=== PATIENT | male | born 1950 | race Caucasian/White ===

== ENCOUNTER 2017-11-27 11:10 | Observation (INO) | payer OTHER, BC ==
[~2017-11-27] VITALS: Ht 177.8 cm; Wt 89.5 kg
[2017-11-27 11:32] LABS: BASO ABS # 0.04 K/uL (0-0.2); EOS % 3.5 %; EOS ABS # 0.14 K/uL (0-0.5); HEMATOCRIT 33.8 % (42-52); HEMOGLOBIN 11.1 g/dL (14.0-18.0); IG# 0.01 K/uL (0.00-0.02); LYMPH % 40.7 %; LYMPH ABS # 1.65 K/uL (1.2-3.4); MEAN CELL VOLUME 99.7 fL (80-100); MEAN CORPUSCULAR HEMOGLOBIN 32.7 pg (25-34); MEAN CORPUSCULAR HGB CONC 32.8 g/dl (32-36); MEAN PLATELET VOLUME 9.6 fL (7.4-10.4); MONO % 9.1 %; MONO ABS # 0.37 K/uL (0.11-0.59); NEUT % 45.5 %; NEUT ABS # 1.84 K/uL (1.4-6.5); PLATELET COUNT 278 K/uL (130-400); RED CELL DISTRIBUTION WIDTH CV 14.2 % (11.5-14.5); RED CELL DISTRIBUTION WIDTH SD 51.6 fL (36.4-46.3); WHITE BLOOD COUNT 4.05 K/uL (4.8-10.8)
[2017-11-27] MEDS ORDERED: ASPI81TA28 PO (11:35)
[2017-11-27] MEDS ORDERED: SOLI10TA2 PO (11:35)
[2017-11-27] MEDS ORDERED: CALC-51 PO (11:35)
[2017-11-27] MEDS ORDERED: OMEG10007 PO (11:35)
--- NOTE | 2017-11-27 11:41 | DIAGNOSTIC IMAGING REPORT ---
SINGLE VIEW CHEST CLINICAL HISTORY: Atypical chest pain. FINDINGS: An AP, portable, upright chest radiograph is obtained. No prior studies are available for comparison at the time of dictation. The examination is degraded by portable technique and apical lordotic positioning. The heart is top normal for projection. The mediastinal contour is within normal limits. Minimal atherosclerotic calcification is noted in the thoracic aorta. The lungs and pleural spaces are clear. No pneumothorax is seen. The bony thorax is grossly intact. IMPRESSION: No active disease in the chest. Electronically signed by: Francis Orellana M.D. 11/27/2017 11:40 AM Dictated Date/Time: 11/27/2017 11:39 AM
[2017-11-27 11:51] LABS: BLOOD UREA NITROGEN 17 mg/dl (7-18); CALCIUM 8.7 mg/dl (8.5-10.1); CARBON DIOXIDE 25 mmol/L (21-32); CKMB < 1.0 ng/ml (0.5-3.6); CREATININE 0.87 mg/dl (0.60-1.40); GLUCOSE 121 mg/dl (70-99); POTASSIUM 3.8 mmol/L (3.5-5.1); SODIUM 140 mmol/L (136-145)
[2017-11-27] MEDS ORDERED: ONDANSETRON INJ 2 MG/ML 2 ML VIAL IV PRN (13:45)
[2017-11-27] MEDS ORDERED: POLYETHYLENE (MIRALAX) 17 GM PACK PO PRN (13:45)
[2017-11-27] MEDS ORDERED: NITROGLYCERIN 0.4 MG SL PER TAB CHARGE SL PRN (13:45)
[2017-11-27] MEDS ORDERED: ALUMINUM/MAGNESIUM/SIMETH (MAALOX MAX) 30 ML UDC PO PRN (13:45)
[2017-11-27] MEDS ORDERED: ACETAMINOPHEN 325 MG TAB PO PRN (13:45)
[2017-11-27] MEDS ORDERED: CHOL100010 PO (13:52)
[2017-11-27] MEDS ORDERED: OYST500T47 PO (13:52)
[2017-11-27 14:30] VITALS: O2SAT 98
[2017-11-27] MEDS ORDERED: GLUCAGON FOR INJ 1 MG VIAL SQ PRN (14:30)
[2017-11-27] MEDS ORDERED: GLUCOSE 10 TABS/TUBE PO PRN (14:30)
[2017-11-27] MEDS ORDERED: CARBOHYDRATES FOR HYPOGLYCEMIA PO PRN (14:30)
[2017-11-27] MEDS ORDERED: GLUCOSE 40% GEL 15 GM TUBE PO PRN (14:30)
[2017-11-27] MEDS ORDERED: DEXTROSE 50% 50 ML SYR IV PRN (14:30)
--- NOTE | 2017-11-27 14:36 | History and Physical ---
History & Physical Date & Time of Service: Nov 27, 2017 at 13:42 Chief Complaint: Ref By - Cardiac/Abnormal Ekg Primary Care Physician: Nahid Meyers DO History of Present Illness Source: patient, clinic records, hospital records Pt is a 67 y/o M with PMH dyslipidemia, prediabetes, prostate CA S/P surgery, presented to ER from PCP office with c/o intermittent CP and found to be bradycardic with 1st degree and 2nd degree AV block on 2 EKGs in office. Pt denies any CP today or currently. Patient reports past month has noticed intermittent left-sided mild chest discomfort that lasts for a few minutes. Reports has noticed it occurs mostly after eating and resolves with drinking water. Sometimes occurs not associated with eating. Denies any chest discomfort with activity or exercise. Denies any SOB, diaphoresis, dizziness, palpitations , syncope. Patient states exercises approx 5 days a week: 30 minutes on treadmill and elliptical. Denies any CP/SOB/dizziness with exercise. Pt reports was on simvastatin 10mg in past, however has been off for past 2 years, as been controlled with diet. Denies fever/chills, diaphoresis, N/V/D/C, LAURA, vision changes, neck pain, orthopnea, cough, sore throat, choking, indigestion, abdominal pain, paresthesias, weakness, extremity edema, rashes, weight changes. Denies any known personal cardiac history. FH: father CABG age ~70, brother CAD with stent at 76 y/o. Past Medical/Surgical History Medical Problems: (1) Dyslipidemia Status: Chronic (2) Prediabetes Status: Chronic (3) Prostate CA Permanent Comment: s/p surgery 2010, Lup Status: Chronic Surgical Problems: (1) Hx of prostatectomy Permanent Comment: 2010 Status: Resolved Family History FH: breast cancer FH: colon cancer FH: melanoma Heart disease (Father CABG age 70 Brother Stent age 76) Social History Smoking Status: Never Smoker Smokeless Tobacco Use: No Alcohol Use: socially (6 beers on weekends) Drug Use: none Marital Status: Housing status: lives with significant other Allergies Coded Allergies: No Known Allergies (Unverified , 11/27/17) Home Medications Scheduled Aspirin (Aspirin Ec), 81 MG PO DAILY Cholecalciferol (Vitamin D), 1 TAB PO DAILY Fish Oil ([place]-3), 1 CAP PO DAILY Oyster Shell (Calcium), 1 TAB PO DAILY Solifenacin (Vesicare), 10 MG PO DAILY Review of Systems See HPI for pertinent positives & negatives. All other systems reviewed and were otherwise negative Physical Exam Vital Signs Date Time Temp Pulse Resp B/P (MAP) Pulse Ox O2 Delivery O2 Flow Rate FiO2 11/27/17 13:11 50 11/27/17 11:30 59 11/27/17 11:13 36.8 60 20 166/92 99 Room Air General Appearance: WD/WN, no apparent distress Head: normocephalic, atraumatic Eyes: normal inspection, sclerae normal ENT: hearing grossly normal, pharynx normal, + pertinent finding (mucous membranes moist) Neck: supple, trachea midline Respiratory/Chest: chest non-tender, lungs clear, normal breath sounds, no respiratory distress Cardiovascular: no murmur, normal peripheral pulses, + bradycardia Abdomen/GI: normal bowel sounds, non tender, soft Extremities/Musculoskelatal: normal inspection, no pedal edema, normal range of motion Neurologic/Psych: alert, normal mood/affect, oriented x 3 Skin: warm/dry Diagnostics Laboratory Results Results Past 24 Hours Test 11/27/17 11:20 Range/Units White Blood Count 4.05 4.8-10.8 K/uL Red Blood Count 3.39 4.7-6.1 M/uL Hemoglobin 11.1 14.0-18.0 g/dL Hematocrit 33.8 42-52 % Mean Corpuscular Volume 99.7 80-100 fL Mean Corpuscular Hemoglobin 32.7 25-34 pg Mean Corpuscular Hemoglobin Concent 32.8 32-36 g/dl Platelet Count 278 130-400 K/uL Mean Platelet Volume 9.6 7.4-10.4 fL Neutrophils (%) (Auto) 45.5 % Lymphocytes (%) (Auto) 40.7 % Monocytes (%) (Auto) 9.1 % Eosinophils (%) (Auto) 3.5 % Basophils (%) (Auto) 1.0 % Neutrophils # (Auto) 1.84 1.4-6.5 K/uL Lymphocytes # (Auto) 1.65 1.2-3.4 K/uL Monocytes # (Auto) 0.37 0.11-0.59 K/uL Eosinophils # (Auto) 0.14 0-0.5 K/uL Basophils # (Auto) 0.04 0-0.2 K/uL RDW Standard Deviation 51.6 36.4-46.3 fL RDW Coefficient of Variation 14.2 11.5-14.5 % Immature Granulocyte % (Auto) 0.2 % Immature Granulocyte # (Auto) 0.01 0.00-0.02 K/uL Sodium Level 140 136-145 mmol/L Potassium Level 3.8 3.5-5.1 mmol/L Chloride Level 107 98-107 mmol/L Carbon Dioxide Level 25 21-32 mmol/L Anion Gap 8.0 3-11 mmol/L Blood Urea Nitrogen 17 7-18 mg/dl Creatinine 0.87 0.60-1.40 mg/dl Est Creatinine Clear Calc Drug Dose 91.6 ml/min Estimated GFR () 103.5 Estimated GFR (Non- 89.3 BUN/Creatinine Ratio 19.1 10-20 Random Glucose 121 70-99 mg/dl Calcium Level 8.7 8.5-10.1 mg/dl Total Creatine Kinase 91 39-308 U/L Creatine Kinase MB < 1.0 0.5-3.6 ng/ml Creatine Kinase MB Ratio 0-3.0 Troponin I < 0.015 0-0.045 ng/ml Diagnostic Radiology CXR: IMPRESSION: No active disease in the chest. Impression Assessment and Plan Pt is a 67 y/o M with PMH dyslipidemia, prediabetes, prostate CA S/P surgery, presented to ER from PCP office with c/o intermittent CP and found to be bradycardic with 1st degree and 2nd degree AV block on 2 EKGs in office. INTERMITTENT CHEST PAIN R/O ACS Pt denies any current CP or any CP today. Reported 1 month hx of intermittent left-sided mild chest discomfort that lasts for a few minutes. Reports has noticed it occurs mostly after eating and resolves with drinking water. No chest discomfort with activity/exercise. No SOB, diaphoresis, palpitations, dizziness, syncope. In ER EKG: sinus bradycardia, rate 59, 1st degree AV block. Initial troponin negative. TSH: 1.3. negative Lyme. -Repeat EKG in am -Will trend troponin -Echo -lipid panel -ASA -Nitro prn CP and repeat EKG for CP -Cardiology consult-Dr Valladares aware & seeing pt in ER -npo after midnight for possible cardiac stress test tomorrow BRADYCARDIA In ER pulse 48-60; BP: 166/92 & 142/82. No dizziness, syncope, CP, SOB. -Pt exercises 30 minutes on treadmill/elliptical 5 days a week -monitor on tele -cardiology consult DYSLIPIDEMIA Hx simvastatin use in past, not for past 2 years, has been controlled with diet -lipid panel in am PREDIABETES glucose: 121 in ER -HA1c in am -diabetic diet -BSG ACHS -novolog sliding scale per protocol PROSTATE CA S/P SURGERY STRESS INCONTINENCE -continue vesicare DVT Prophylaxis -lovenox Admit tele Full Code as per discussion with pt Follows with Dr Luigi Khalil for routine care Pt was seen with Dr Lyle. See addendum Resuscitation Status VTE Prophylaxis Will order VTE Prophylaxis: Yes Note ATTENDING ADDENDUM Record reviewed. Patient interviewed and examined. Care coordinated with Nataly Clay PA-C. Please refer to her documentation for patient's history. Briefly, 67-year-old male with no history of cardiovascular disease. Seen in clinic today for routine follow-up. Experiencing intermittent nonexertional chest discomfort. Noted to be bradycardic. EKG showed intermittent second-degree heart block. Referred to the hospital for further evaluation. Pain-free at time of my assessment. EXAM: General- no distress Lungs- clear to auscultation; no respiratory distress Cardiovascular- RRR; no murmur; no gallop; no JVD; no pretibial edema Abdomen- + bowel sounds, soft, nontender Extremities- no cyanosis; no calf tenderness Neuro- alert, oriented Skin- warm & dry DATA: Serum troponin less than 0.015. Lyme screen negative. TSH 1.390. Other lab studies as noted. Chest x-ray showed normal cardiac silhouette, no infiltrates, effusions, CHF. EKG performed at 11:19 reviewed and demonstrated sinus bradycardia at 59 / minute, first-degree AV block, no acute ST or T-wave abnormalities. ASSESSMENT AND PLAN: Intermittent chest pain, nonexertional. Check serial cardiac markers. Cardiology consulted. First-degree AV block and intermittent second-degree AV block. Lyme screen and TSH normal. Further management per Cardiology. Please refer to ANDRE Reynolds's documentation for discussion of other issues. Gentry Lyle MD . Additional Copies To Nahid Meyers DO
[2017-11-27 14:38] VITALS: BP 153/87; PULSE 60; TEMP 37; O2SAT 100; Ht 177.8 cm; Wt 89.5 kg
[2017-11-27] MEDS ORDERED: IV FLUIDS COMPLETED PRN (14:45)
[2017-11-27 15:22] LABS: INR 0.9 (0.9-1.1)
[2017-11-27] MEDS ORDERED: ENOXAPARIN 40 MG/0.4 ML SYR SC SCH (16:00)
[2017-11-27] MEDS: INSULIN ASPART 100 UNITS/ML 3 ML PEN SC SCH ×2 (16:15→21:00)
--- NOTE | 2017-11-27 16:26 | ECHOCARDIOGRAM REPORT ---
*NOTICE TO RECEIVING [employer] [facility] This information is strictly Confidential and protected under [place] law. [place] law prohibits you from making any further disclosure of this information unless further disclosure is expressly permitted by the written consent of the person to whom it pertains or is authorized by law. A general authorization for the release of medical or other information is not sufficient for this purpose. Hospital accepts no responsibility if the information is made available to any other person, INCLUDING THE PATIENT. Interpretation Summary * Name: KYLIE MARQUEZ Study Date: 11/27/2017 02:46 PM BP: 153/87 mmHg * Patient Location: C.2E\S\E211\S\1 HR: 49 * : 1950 (M/d/yyyy) Gender: Male Height: 69 in * Age: 67 yrs Ethnicity: CA Weight: 199 lb * Ordering Physician: Nataly Reynolds * Referring Physician: Fer Oneal D.O. * Performed By: Clarita Meyers RCS * * Reason For Study: CHEST PAIN * BSA: 2.1 m2 * -- Conclusions -- * The left ventricle is normal in size. * There is moderate concentric left ventricular hypertrophy. * Left ventricular systolic function is normal. * The left ventricular wall motion is normal. * Ejection Fraction = 55-60%. * Grade I diastolic dysfunction, (abnormal relaxation pattern). * There is no significant valvular disease * Aortic valve sclerosis mild, without significant aortic valvular stenosis. Procedure Details * A complete two-dimensional transthoracic echocardiogram was performed (2D, M-mode, Doppler and color flow Doppler). Left Ventricle * The left ventricle is normal in size. * There is moderate concentric left ventricular hypertrophy. * Left ventricular systolic function is normal. * Ejection Fraction = 55-60%. * The left ventricular wall motion is normal. Right Ventricle * The right ventricle is normal in size and function. Atria * The left atrial size is normal. * Right atrial size is normal. * No ASD detected; PFO is not assessed. Mitral Valve * The mitral valve anatomy is normal. * There is no mitral valve stenosis. * There is trace mitral regurgitation. Tricuspid Valve * The tricuspid valve anatomy is normal. * There is no tricuspid stenosis. * There is trace tricuspid regurgitation. * Doppler findings do not suggest pulmonary hypertension. Aortic Valve * The aortic valve is trileaflet. * Aortic valve sclerosis mild, without significant aortic valvular stenosis. * No hemodynamically significant valvular aortic stenosis. * No aortic regurgitation is present. Pulmonic Valve * The pulmonic valve is not well visualized. Great Vessels * The aortic root is normal size. Pericardium/Pleural * There is no pericardial effusion. Great Vessels * Normal inferior vena cava diameter and respiratory variation suggests normal central venous pressure. Left Ventricular Diastolic Function * Grade I diastolic dysfunction, (abnormal relaxation pattern). MMode 2D Measurements and Calculations IVSd 1.5 cm IVSs 1.7 cm LVIDd 5.0 cm LVIDs 4.2 cm LVPWd 1.2 cm LVPWs 1.4 cm IVS/LVPW 1.2 FS 16.9 % EDV(Teich) 120.4 ml ESV(Teich) 78.1 ml EF(Teich) 35.2 % EDV(cubed) 128.0 ml ESV(cubed) 73.5 ml EF(cubed) 42.6 % % IVS thick 16.6 % % LVPW thick 11.8 % LV mass(C)d 284.0 grams LV mass(C)dI 137.8 grams/m\S\2 LV mass(C)s 264.4 grams LV mass(C)sI 128.3 grams/m\S\2 SV(Teich) 42.4 ml SI(Teich) 20.5 ml/m\S\2 SV(cubed) 54.5 ml SI(cubed) 26.4 ml/m\S\2 Ao root diam 3.7 cm Ao root area 10.6 cm\S\2 ACS 2.7 cm LA dimension 3.5 cm LA/Ao 0.96 LVOT diam 2.0 cm LVOT area 3.3 cm\S\2 LVAd ap4 34.2 cm\S\2 LVLd ap4 8.4 cm EDV(MOD-sp4) 113.2 ml EDV(sp4-el) 117.6 ml LVAs ap4 20.6 cm\S\2 LVLs ap4 6.8 cm ESV(MOD-sp4) 53.5 ml ESV(sp4-el) 53.4 ml EF(MOD-sp4) 52.7 % EF(sp4-el) 54.6 % LVAd ap2 39.7 cm\S\2 LVLd ap2 9.4 cm EDV(MOD-sp2) 137.9 ml EDV(sp2-el) 143.0 ml LVAs ap2 23.9 cm\S\2 LVLs ap2 7.0 cm ESV(MOD-sp2) 66.6 ml ESV(sp2-el) 68.9 ml EF(MOD-sp2) 51.7 % EF(sp2-el) 51.8 % LVLd %diff 10.0 % EDV(MOD-bp) 130.8 ml LVLs %diff 3.8 % ESV(MOD-bp) 60.1 ml EF(MOD-bp) 54.0 % SV(MOD-sp4) 59.7 ml SI(MOD-sp4) 28.9 ml/m\S\2 SV(MOD-sp2) 71.3 ml SI(MOD-sp2) 34.6 ml/m\S\2 SV(MOD-bp) 70.6 ml SI(MOD-bp) 34.3 ml/m\S\2 SV(sp4-el) 64.2 ml SI(sp4-el) 31.1 ml/m\S\2 SV(sp2-el) 74.1 ml SI(sp2-el) 36.0 ml/m\S\2 Doppler Measurements and Calculations MV E max adelaide 62.6 cm/sec MV A max ad[place] 83.0 cm/sec MV E/A 0.75 MV P1/2t max [place] 68.2 cm/sec MV P1/2t 76.9 msec MVA(P1/2t) 2.9 cm\S\2 MV dec slope 259.6 cm/sec\S\2 MV dec time 0.18 sec Ao V2 max 111.7 cm/sec Ao max PG 5.0 mmHg Ao max PG (full) 2.4 mmHg HALLE(V,A) 2.4 cm\S\2 HALLE(V,D) 2.4 cm\S\2 LV V1 max PG 2.6 mmHg LV V1 max 80.0 cm/sec PA V2 max 107.0 cm/sec PA max PG 4.6 mmHg PI max [place] 155.3 cm/sec PI max PG 9.6 mmHg PI dec slope 145.4 cm/sec\S\2 PI P1/2t 312.9 msec TR max ad[place] 186.4 cm/sec
[2017-11-27] MEDS: VESICARE~ORDER AWAITING ACTION SCH ×2 (16:37→21:01)
--- NOTE | 2017-11-27 16:53 | EMERGENCY ROOM VISIT NOTE ---
History Report prepared by Calvin: Erick Carroll Under the Supervision of: Dr. Werner Hernandez D.O. First contact with patient: 11:14 Chief Complaint: CARDIAC ASSESSMENT Stated Complaint: REF BY DR - CARDIAC/ABNORMAL EKG History of Present Illness The patient is a 67 year old male who presents to the Emergency Room after referral from his primary care office and Dr. Oneal after having an outpatient EKG during a routine physical this morning. The patient states that over the past couple of weeks to months he has been having a very intermittent acute "discomfort" in the left chest. He does not qualify the pain in anyway and describes it as only a discomfort. He denies any other arm pain, jaw pain, diaphoresis, shortness of breath, or dizziness. He continues to deny any nausea , vomiting, diarrhea or cough. The patient notes that the last episode of chest discomfort was 3-4 days ago. He notes that he does exercise 30-45 minutes every day and does not notice that exercise precipitates the pain. Source of History: patient Onset: weeks to months Position: chest (left) Quality: other ("discomfort" ) Timing: intermittent Associated Symptoms: No cough, No neck pain, No SOB, No nausea, No vomiting , No abdominal pain, No diarrhea, No weakness, No numbness Review of Systems See HPI for pertinent positives & negatives. A total of 10 systems reviewed and were otherwise negative. Past Medical & Surgical Medical Problems: (1) Bradycardia (2) Dyslipidemia (3) Intermittent chest pain (4) Prediabetes (5) Prostate CA Surgical Problems: (1) Hx of prostatectomy Family History Heart disease Social History Smoking Status: Never Smoker Drug Use: none Marital Status: Housing Status: lives with significant other Occupation Status: retired Current/Historical Medications Scheduled Aspirin (Aspirin Ec), 81 MG PO DAILY Cholecalciferol (Vitamin D), 1 TAB PO DAILY Fish Oil ([place]-3), 1 CAP PO DAILY Oyster Shell (Calcium), 1 TAB PO DAILY Solifenacin (Vesicare), 10 MG PO DAILY Allergies Coded Allergies: No Known Allergies (Unverified , 11/27/17) Physical Exam Vital Signs Date Time Temp Pulse Resp B/P (MAP) Pulse Ox O2 Delivery O2 Flow Rate FiO2 11/27/17 13:11 50 11/27/17 13:10 55 12 11/27/17 12:40 54 11 11/27/17 12:10 56 12 11/27/17 11:40 48 14 11/27/17 11:30 59 11/27/17 11:13 36.8 60 20 166/92 99 Room Air Physical Exam GENERAL: Sitting up in bed, alert, well appearing, well nourished, no distress, non-toxic EYE EXAM: normal conjunctiva. OROPHARYNX: no exudate, no erythema, lips, buccal mucosa, and tongue normal and mucous membranes are moist NECK: supple, no nuchal rigidity, no adenopathy, non-tender LUNGS: Clear to auscultation. Normal chest wall mechanics HEART: no murmurs, S1 normal and S2 normal ABDOMEN: abdomen soft, non-tender, normo-active bowel sounds, no masses, no rebound or guarding. BACK: Back is symmetrical on inspection and there is no deformity, no midline tenderness, no CVA tenderness. SKIN: no rashes and no bruising UPPER EXTREMITIES: upper extremities are grossly normal. LOWER EXTREMITIES: No pitting edema. Calves equal bilaterally. NEURO EXAM: Normal sensorium, cranial nerves II-XII grossly intact, normal speech, no gross weakness of arms, no gross weakness of legs. Medical Decision & Procedures ER Provider Diagnostic Interpretation: Radiology results as stated below per my review and the radiologist's interpretation: SINGLE VIEW CHEST CLINICAL HISTORY: Atypical chest pain. FINDINGS: An AP, portable, upright chest radiograph is obtained. No prior studies are available for comparison at the time of dictation. The examination is degraded by portable technique and apical lordotic positioning. The heart is top normal for projection. The mediastinal contour is within normal limits. Minimal atherosclerotic calcification is noted in the thoracic aorta. The lungs and pleural spaces are clear. No pneumothorax is seen. The bony thorax is grossly intact. IMPRESSION: No active disease in the chest. Electronically signed by: Francis Orellana M.D. 11/27/2017 11:40 AM Dictated Date/Time: 11/27/2017 11:39 AM Laboratory Results 11/27/17 11:20 Red Blood Count 3.39, Mean Corpuscular Volume 99.7, Mean Corpuscular Hemoglobin 32.7, Mean Corpuscular Hemoglobin Concent 32.8, Mean Platelet Volume 9.6, Neutrophils (%) (Auto) 45.5, Lymphocytes (%) (Auto) 40.7, Monocytes (%) (Auto) 9.1, Eosinophils (%) (Auto) 3.5, Basophils (%) (Auto) 1.0, Neutrophils # (Auto) 1.84, Lymphocytes # (Auto) 1.65, Monocytes # (Auto) 0.37, Eosinophils # (Auto) 0.14, Basophils # (Auto) 0.04 11/27/17 11:20 Test 11/27/17 11:20 White Blood Count 4.05 K/uL (4.8-10.8) Red Blood Count 3.39 M/uL (4.7-6.1) Hemoglobin 11.1 g/dL (14.0-18.0) Hematocrit 33.8 % (42-52) Mean Corpuscular Volume 99.7 fL (80-100) Mean Corpuscular Hemoglobin 32.7 pg (25-34) Mean Corpuscular Hemoglobin Concent 32.8 g/dl (32-36) Platelet Count 278 K/uL (130-400) Mean Platelet Volume 9.6 fL (7.4-10.4) Neutrophils (%) (Auto) 45.5 % Lymphocytes (%) (Auto) 40.7 % Monocytes (%) (Auto) 9.1 % Eosinophils (%) (Auto) 3.5 % Basophils (%) (Auto) 1.0 % Neutrophils # (Auto) 1.84 K/uL (1.4-6.5) Lymphocytes # (Auto) 1.65 K/uL (1.2-3.4) Monocytes # (Auto) 0.37 K/uL (0.11-0.59) Eosinophils # (Auto) 0.14 K/uL (0-0.5) Basophils # (Auto) 0.04 K/uL (0-0.2) RDW Standard Deviation 51.6 fL (36.4-46.3) RDW Coefficient of Variation 14.2 % (11.5-14.5) Immature Granulocyte % (Auto) 0.2 % Immature Granulocyte # (Auto) 0.01 K/uL (0.00-0.02) Prothrombin Time 9.9 SECONDS (9.0-12.0) Prothromb Time International Ratio 0.9 (0.9-1.1) Anion Gap 8.0 mmol/L (3-11) Est Creatinine Clear Calc Drug Dose 91.6 ml/min Estimated GFR () 103.5 Estimated GFR (Non- 89.3 BUN/Creatinine Ratio 19.1 (10-20) Calcium Level 8.7 mg/dl (8.5-10.1) Magnesium Level 2.1 mg/dl (1.8-2.4) Total Creatine Kinase 91 U/L (39-308) Creatine Kinase MB < 1.0 ng/ml (0.5-3.6) Creatine Kinase MB Ratio (0-3.0) Troponin I < 0.015 ng/ml (0-0.045) Thyroid Stimulating Hormone (TSH) 1.390 uIu/ml (0.300-4.500) Lyme Disease IgG Antibody NEG (NEG) Lyme Disease IgM Antibody NEG (NEG) Laboratory results per my review. ECG Per My Interpretation Indication: chest pain, other (EKG Findings outpatient) Rate (beats per minute): 59 Rhythm: sinus bradycardia Findings: 1st degree AV block, no acute ischemic change, other (Normal [place], no PVCs) ED Course ED COURSE: Vital signs were reviewed and showed hypertensive vitals. The patients medical record was reviewed The above diagnostic studies were performed and reviewed. ED treatments and interventions as stated above. 1120: The patient was evaluated in room C7. A complete history and physical examination was performed. 1223: I discussed the case with Dr. Valladares - Cardiology. He suggests admitting the patient to medicine. 1229: I discussed the case with Cheryl Dickey [facility] Hospitalist PARTHA. She will evaluate the patient for further treatment. 1243: Upon reevaluation, the patient is resting in bed. I discussed my findings with the patient and he understands and agrees with the treatment plan. Based on the patients age, coexisting illnesses, exam and lab findings the decision to treat as an inpatient was made. The patient remained stable while under my care. The patient will be evaluated for further management. Medical Decision Differential diagnoses includes but is not limited to acute coronary syndrome, myocardial infarction, pericarditis, pulmonary embolus, aortic dissection, pneumonia, pneumothorax, musculoskeletal, shingles, esophageal. Patient is a 67-year-old male that is referred in by cardiology for Mobitz type II heart block. CBC along with BMP and troponin was unremarkable. TSH is normal. INR is unremarkable. Chest x-ray is unremarkable. EKG shows a sinus rhythm with a first-degree AV block. Discussed with cardiology. Patient was updated bedside admitted to internal medicine. Medication Reconcilliation Current Medication List: was personally reviewed by me Blood Pressure Screening Patient's blood pressure: Elevated blood pressure Referred to hospitalist. Consults Time Called: 1220 Consulting Physician: Dr. Valladares - Cardiology Returned Call: 1223 I discussed the case with Dr. Blaine Washington Cardiology. He suggests admitting the patient to medicine. Additional Consults: Time Called: 1224 Consulted Physician: Cheryl CHAVIS Returned Call: [phone] Additional Comments: [facility] She will evaluate the patient for further treatment. Impression Primary Impression: Mobitz type 2 second degree heart block Scribe Attestation The scribe's documentation has been prepared under my direction and personally reviewed by me in its entirety. I confirm that the note above accurately reflects all work, treatment, procedures, and medical decision making performed by me. Departure Information Dispostion Being Evaluated By Hospitalist Referrals Nahid Meyers DO (PCP) Patient Instructions My [facility]
--- NOTE | 2017-11-27 17:17 | CARDIOLOGY CONSULTATION ---
DATE OF CONSULTATION: 11/27/2017 REFERRING: Dr. Reynolds. PRIMARY CARE PHYSICIAN: Dr. Nahid Meyers. INDICATIONS: Chest discomfort, second-degree AV block. HISTORY OF PRESENT ILLNESS: The patient is a 67-year-old male without prior documented coronary artery disease or heart disease. His underlying medical problems include dyslipidemia and familial history of heart disease, underlying history of past prostate carcinoma, status post radiation therapy. He presents now noting having been seen by a new primary care physician this morning and during full review of system did note intermittent episodes of chest discomfort with atypical features of heaviness that occurs both with rest and stress with good exercise tolerance generally. He continues to exercise vigorously. His history is notable for 25 pound weight loss over the past two years through diet and exercise efforts. EKG done to evaluate symptoms above demonstrated sinus rhythm with second-degree AV block. In light of concerns, he was referred to ER evaluation. Today, the patient denies any current complaints. Notes no dizziness or lightheadedness. Notes no history of syncope. Notes no history of rheumatic fever, scarlet fever, TIA or stroke. Notes no melena, hematochezia, dysuria or hematuria. Appetite has been good. He notes a weight loss as described above. Notes no sleep disturbances. Exercise activities include treadmill and elliptical workout, a relatively high level workload with good tolerance. Notes previously having been on simvastatin for lipid reduction, but discontinued it with weight loss efforts and dietary intervention. Last LDL 05/2017 was 120. He denies fevers, chills or sweats. Notes no tick exposure. Does have a history of past rash. Does work in his yard. Denies headache or visual changes. Notes no neck stiffness. REVIEW OF SYSTEMS: Otherwise negative. ALLERGIES: None. MEDICATIONS: Prior to hospitalization were VESIcare 10 mg per day, calcium supplement 2000 mg per day, fish oil one tablet per day, vitamin D and aspirin 81 mg per day. PAST SURGICAL HISTORY: Notable for retropubic radical prostatectomy, laparoscopic in 01/2011. FAMILY HISTORY: Notable for coronary disease in multiple family members including father, brother and on maternal side. 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 He is a nonsmoker. Occasional alcoholic beverage drinker. PHYSICAL EXAMINATION: VITAL SIGNS: Heart rate is 54, blood pressure is 142/80. HEENT: Normocephalic, atraumatic. Nares without discharge. Throat was clear. NECK: Supple without thyromegaly, lymphadenopathy, JVD or bruit. LUNGS: Clear to auscultation. CARDIOVASCULAR: Regular with normal S1, S2. There is no audible murmur, gallop or rub. PMI is nondisplaced. ABDOMEN: Soft, nontender. There is no palpable hepatosplenomegaly. There is no hepatojugular reflux. EXTREMITIES: Without cyanosis or clubbing. There is no peripheral edema. There are intact distal pulses. NEUROLOGIC: The patient is alert and oriented, answering questions appropriately. DIAGNOSTIC DATA: EKG performed in the Emergency Room reveals sinus rhythm, first-degree AV block, rate 59. Telemetry reveals intermittent second-degree AV block Mobitz I. LABORATORY STUDIES: Lyme disease screening titer is negative. TSH is 1.3. Troponin less than 0.015. Sodium is 140, potassium 3.8, chloride is 107, bicarbonate 25, BUN 17, creatinine 0.87, hemoglobin 11.1, hematocrit 33.8. IMPRESSION: The patient is a 67-year-old male without prior documented cardiac history. Underlying medical cardiac risk factors of mild hyperlipidemia and familial history of heart disease, presented for routine evaluation. On complete review of system, did mention occasional episodes of chest heaviness without specific exertional relationship atypical in nature. EKG done demonstrates second-degree AV block, Mobitz 1 versus Mobitz II. PLAN: The patient will be admitted to telemetry to follow heart rates and rhythm overnight. Laboratory studies have already been ordered. Has baseline screening studies with normal TSH and Lyme titer. The patient will be kept n.p.o. after midnight with anticipated stress echocardiography in the morning, unless findings discern on telemetry or resting echocardiogram ordered. Discussed mechanisms of cardiac conduction in detail. MARVIN
[2017-11-27 19:17] VITALS: BP 121/74; PULSE 56; TEMP 36.8; O2SAT 97
[2017-11-27 20:00] VITALS: O2SAT 98
[2017-11-28 00:10] VITALS: BP 111/72; PULSE 56; TEMP 36.9; O2SAT 97
[2017-11-28 03:07] VITALS: BP 120/74; PULSE 55; TEMP 36.7; O2SAT 96
[2017-11-28 06:11] LABS: HEMATOCRIT 33.1 % (42-52); HEMOGLOBIN 10.9 g/dL (14.0-18.0); MEAN CELL VOLUME 99.4 fL (80-100); MEAN CORPUSCULAR HEMOGLOBIN 32.7 pg (25-34); MEAN CORPUSCULAR HGB CONC 32.9 g/dl (32-36); PLATELET COUNT 256 K/uL (130-400); RED CELL DISTRIBUTION WIDTH CV 14.1 % (11.5-14.5); RED CELL DISTRIBUTION WIDTH SD 50.7 fL (36.4-46.3); WHITE BLOOD COUNT 3.63 K/uL (4.8-10.8)
[2017-11-28] MEDS: INSULIN ASPART 100 UNITS/ML 3 ML PEN SC SCH (07:00)
[2017-11-28 07:01] LABS: CALCIUM 8.3 mg/dl (8.5-10.1); CREATININE 0.91 mg/dl (0.60-1.40); POTASSIUM 4.4 mmol/L (3.5-5.1)
[2017-11-28] MEDS: VESICARE~ORDER AWAITING ACTION SCH (08:00)
[2017-11-28 08:22] VITALS: BP 111/71; PULSE 52; TEMP 36.9; O2SAT 97
[2017-11-28] MEDS ORDERED: ASPIRIN 81 MG ECTAB PO SCH (09:00)
--- NOTE | 2017-11-28 10:16 | PROGRESS NOTE ---
DATE: 11/28/2017 The patient seen and examined. Chart, medications, telemetry reviewed. SUBJECTIVE: The patient had no problems overnight. Telemetry demonstrated sinus bradycardia with first-degree AV block and Mobitz type 1 second-degree AV block, no pauses or high-degree conduction abnormalities. He had no chest pains or shortness of breath. He was referred and underwent stress testing as below with negative study for ischemia. Echocardiogram demonstrated moderate left ventricular hypertrophy. Currently, he feels well. OBJECTIVE: VITAL SIGNS: Heart rate is 52, blood pressure is 111/71. HEENT: Normocephalic, atraumatic. NECK: There is no jugular venous distention. No carotid bruits. LUNGS: Clear. CARDIOVASCULAR: Regular with normal S1, S2. No murmur, gallop or rub. ABDOMEN: Soft, nontender. EXTREMITIES: Without cyanosis or clubbing. There is no peripheral edema. LABORATORY STUDIES: White cell count 3.6, hemoglobin is 10.9. Cholesterol is 201 with an LDL of 119 and HDL of 51. Hemoglobin A1c was 6.0. Glucose is 117. Stress echocardiography, the patient exercised for a total of 10 minutes on a standard Leo protocol achieving 88% age-predicted maximum heart rate without ischemia or symptoms. EKG response was normal. First-degree AV block and second-degree AV block were not present during stress. LV systolic function improved appropriately without evidence of ischemia. IMPRESSION AND PLAN: 1. Second-degree AV block, Mobitz type 1, asymptomatic. Plan: Avoid all AV node blocking drugs. Zio patch event monitor be placed post-hospital discharge to exclude significant arrhythmias. 2. Multiple cardiac risk factors with atypical chest discomfort. Stress testing negative for ischemia. 3. Mildly hypertensive blood pressure response without LVH on echocardiogram. Would recommend initiating losartan 25 mg per day, treatment of underlying hyperglycemia. Follow up with cardiology in 4-6 weeks' time.
--- NOTE | 2017-11-28 11:31 | Progress Note ---
Medicine Progress Note Date & Time of Visit: Nov 28, 2017 at 11:31 . Subjective Doing well. No CP, SOB, lightheadedness. Did well on treadmill stress test. . Objective Last 8 Hrs Date Time Temp Pulse Resp B/P (MAP) Pulse Ox O2 Delivery O2 Flow Rate FiO2 11/28/17 08:22 36.9 52 16 111/71 (84) 97 Room Air 11/28/17 08:00 Room Air Physical Exam: General- no distress Lungs- clear to auscultation; no respiratory distress Cardiovascular- RRR; no murmur or gallop; no JVD; no pretibial edema Abdomen- + bowel sounds, soft, nontender Extremities- no cyanosis; no calf tenderness Neuro- alert, oriented Skin- warm & dry . Laboratory Results: Last 24 Hours Test 11/27/17 16:14 11/27/17 17:12 11/27/17 20:17 11/27/17 22:50 Bedside Glucose 94 mg/dl 94 mg/dl Troponin I < 0.015 ng/ml < 0.015 ng/ml Test 11/28/17 05:50 11/28/17 07:21 11/28/17 11:12 White Blood Count 3.63 K/uL Red Blood Count 3.33 M/uL Hemoglobin 10.9 g/dL Hematocrit 33.1 % Mean Corpuscular Volume 99.4 fL Mean Corpuscular Hemoglobin 32.7 pg Mean Corpuscular Hemoglobin Concent 32.9 g/dl RDW Standard Deviation 50.7 fL RDW Coefficient of Variation 14.1 % Platelet Count 256 K/uL Mean Platelet Volume 10.0 fL Sodium Level 142 mmol/L Potassium Level 4.4 mmol/L Chloride Level 109 mmol/L Carbon Dioxide Level 28 mmol/L Anion Gap 5.0 mmol/L Blood Urea Nitrogen 14 mg/dl Creatinine 0.91 mg/dl Est Creatinine Clear Calc Drug Dose 88.7 ml/min Estimated GFR () 100.7 Estimated GFR (Non- 86.9 BUN/Creatinine Ratio 15.5 Random Glucose 106 mg/dl Estimated Average Glucose 126 mg/dl Hemoglobin A1c 6.0 % Calcium Level 8.3 mg/dl Magnesium Level 2.0 mg/dl Triglycerides Level 153 mg/dl Cholesterol Level 201 mg/dl HDL Cholesterol 51 mg/dl LDL Cholesterol, Calculated 119 mg/dl VLDL Cholesterol, Calculated 31 mg/dl Cholesterol/HDL Ratio 3.9 Bedside Glucose 117 mg/dl 103 mg/dl Assessment & Plan CHEST PAIN Experiencing intermittent nonexertional chest pain. Serial troponins negative. No acute EKG changes. No wall motion abnormalities on echo. No stress-induced ischemia on treadmill stress echo at adequate workload. Consider GI evaluation if symptoms persist / worsen. HEART BLOCK First degree AV block with intermittent asymptomatic second degree block ( Mobitz type I). TSH normal. Lyme screen negative. Not on any rate-slowing drugs. Outpatient cardiac monitoring with ZIO patch recommended. ELEVATED BLOOD PRESSURES Blood pressures fluctuated; BP in ED as high as 166/92. Moderate concentric LVH noted on echo. Hypertensive response to exercise noted during stress test. Losartan 25 mg daily recommended. PREDIABETES History of prediabetes. Hgb A1C = 6.0. FBS 117. Follow. 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 Follow. PROSTATE CA Followed by Dr. Stuart. Receiving Lupron injections. Recent PSA undetectable. HEPATITIS C SCREENING Hep C screen negative. VTE PROPHYLAXIS SQ enoxaparin. Ambulating. DISPOSITION Discharged to home. Family Medicine follow-up with Dr. Meyers. Follow-up with [facility]iology. . Current Inpatient Medications: Current Inpatient Medications Medications (Trade) Dose Ordered Sig/Duane Route Start Time Stop Time Status Last Admin Dose Admin Enoxaparin Sodium (Lovenox Inj) 40 mg Q24H SC 11/27/17 16:00 12/27/17 15:59 11/27/17 16:37 40 MG Acetaminophen (Tylenol Tab) 650 mg Q4H PRN PO 11/27/17 13:45 12/27/17 13:44 Al Hydrox/Mg Hydrox/Simethicone (Maalox Max Susp) 15 ml Q4H PRN PO 11/27/17 13:45 12/27/17 13:44 Ondansetron HCl (Zofran Inj) 4 mg Q6H PRN IV 11/27/17 13:45 12/27/17 13:44 Nitroglycerin (Nitrostat Tab) 0.4 mg UD PRN SL 11/27/17 13:45 12/27/17 13:44 Polyethylene (Miralax Powder Packet) 17 gm DAILY PRN PO 11/27/17 13:45 12/27/17 13:44 Aspirin (Ecotrin Tab) 81 mg DAILY PO 11/28/17 09:00 12/28/17 08:59 11/28/17 08:08 81 MG Miscellaneous Information (Order Awaiting Action) 1 ea QS N/A 11/27/17 16:00 12/27/17 15:59 Insulin Aspart (novoLOG ASPART) SLIDING SCALE If C... ACHS SC 11/27/17 16:00 12/27/17 15:59 Glucose (Glucose 40% Gel) 15-30 GRAMS 15 GRAMS... UD PRN PO 11/27/17 14:30 12/27/17 14:29 Glucose (Glucose Chew Tab) 4-8 Tablets 4 Tabl... UD PRN PO 11/27/17 14:30 12/27/17 14:29 Dextrose (Dextrose 50% 50ML Syringe) 25-50ML 25ML FOR ... UD PRN IV 11/27/17 14:30 12/27/17 14:29 Glucagon (Glucagon Inj) 1 mg UD PRN SQ 11/27/17 14:30 12/27/17 14:29 Carbohydrates (Carbohydrates For Hypoglycemia) 15-30 GRAMS 15 grams if BSG 54-69... UD PRN PO 11/27/17 14:30 12/27/17 14:29 Miscellaneous (Iv Fluids Completed) 1 ea PRN PRN N/A 11/27/17 14:45 11/27/18 14:44
[2017-11-28] MEDS ORDERED: CZR25 PO (11:33)
--- NOTE | 2017-11-28 11:44 | Discharge Instructions ---
Discharge Instructions Date of Service Nov 28, 2017. Admission Reason for Admission: chest pain, slow heart rate . Discharge Discharge Diagnosis / Problem: chest pain- no sign of heart attack, mild heart block Discharge Goals Goal(s): Prevent Disease Progression Activity Recommendations Activity Limitations: resume your previous activity . Instructions / Follow-Up Instructions / Follow-Up APPOINTMENTS: UROLOGY 12/04/2017 10:15 AM Rama Stuart MD Urology, [facility] FAMILY MEDICINE 12/04/2017 11:10 AM Nahid Meyers DO Family Practice [facility] CARDIOLOGY Appointment to be arranged in about 4-6 weeks. Cardiology [facility] OTHER INSTRUCTIONS: There was no sign of a heart attack and you did well on your stress test. Blood pressures were elevated at times. Suggest losartan (Cozaar) 25 mg daily- prescription sent to [facility]. Please monitor your blood pressures at home. You can get a blood pressure monitor at [facility], [facility], or elsewhere. If you feel well on losartan, continue it. If you feel weak or lightheaded, stop taking it. You have mild heart block with delayed conduction of electrical impulses in your heart. It is mild and there is not need for a pacemaker at this time. Outpatient radiation monitor recommended (ZIO patch). Dr. Valladares or Dr. Meyers will make arrangements for you. Lightheadedness, extreme weakness, or passing out could be a sign that heart block is getting worse; seek medical attention if that happens. Seek medical attention if you have: * temperature above 101 * chest pain or trouble breathing * lightheadedness, extreme weakness, passing out * abdominal pain, nausea, vomiting * diarrhea, dark stools or bloody stools * any unanswered questions or concerns Call 911 if symptoms are severe. Call if you have any questions or problems. My cell # is [phone]. You can also reach a [facility] hospitalist on duty at [facility] 24 hours a day by calling [phone]. Please take good care of yourself. Gentry Lyle . Current Hospital Diet Patient's current hospital diet: AHA Diet (Heart Healthy) Discharge Diet Recommended Diet: AHA Diet (Heart Healthy) Procedures Procedures Performed: echocardiogram stress test Pending Studies Studies pending at discharge: no Laboratory Results Hemoglobin A1c Test 11/28/17 05:50 Range/Units Estimated Average Glucose 126 mg/dl Hemoglobin A1c 6.0 H 4.5-5.6 % Lipid Panel Test 11/28/17 05:50 Range/Units Triglycerides Level 153 H 0-150 mg/dl Cholesterol Level 201 H 0-200 mg/dl HDL Cholesterol 51 mg/dl Cholesterol/HDL Ratio 3.9 LDL Cholesterol, Calculated 119 mg/dl Medical Emergencies . Who to Call and When: Medical Emergencies: If at any time you feel your situation is an emergency, please call 911 immediately. . Non-Emergent Contact Non-Emergency issues call your: Primary Care Provider, Acquisition Editor, Hospital Doctor . . "Provider Documentation" section prepared by Gentry Lyle. .
[2017-11-28 11:58] VITALS: BP 111/71; PULSE 52; TEMP 36.9; O2SAT 97
--- NOTE | 2017-11-28 14:05 | EXERCISE STRESS ECHO ---
*NOTICE TO RECEIVING DEMOCRAT AGENCY This information is strictly Confidential and protected under [place] law. [place] law prohibits you from making any further disclosure of this information unless further disclosure is expressly permitted by the written consent of the person to whom it pertains or is authorized by law. A general authorization for the release of medical or other information is not sufficient for this purpose. Hospital accepts no responsibility if the information is made available to any other person, INCLUDING THE PATIENT. Interpretation Summary * Name: KYLIE MARQUEZ Study Date: 11/28/2017 08:30 AM BP: 121/77 mmHg * Patient Location: .2E\S\E211\S\1 HR: 59 * : 1950 (M/d/yyyy) Gender: Male Height: 69 in * Age: 67 yrs Ethnicity: [place] Weight: 199 lb * Ordering Physician: Luiz Valladares * Referring Physician: Fer Oneal D.O. * Performed By: Sandra Oropeza RDCS * * Reason For Study: Chest pain * BSA: 2.1 m2 * The stress echocardiogram is negative for inducible ischemia. * _ workload achieved. * The stress ECG response was normal * Normal resting wall motion and no stress-induced wall motion abnormality. * -- Conclusions -- * Baseline EKG: Sinus bradycardia with first-degree AV block intermittent Mobitz type I second-degree AV block * Intermittent second-degree AV block resolved with exercise Procedure Details * ECHOEX, CPT #72974 Left Ventricle * Ejection Fraction = 60-65%. Stress Parameters * Baseline EKG: Sinus bradycardia with first-degree AV block intermittent Mobitz type I second-degree AV block * No arrhythmia were noted with stress. * Intermittent second-degree AV block resolved with exercise * Stress ECG: No ST changes. No arrhythmias. * The stress portion of this study was personally supervised by the undersigned interpreting physician. * Rest heart rate was '59' BPM. * Rest blood pressure was '121/77' * Maximum heart rate achieved was 137 bpm. * Maximum heart rate was 89 % of maximum age-predicted heart rate. * Maximum blood pressure was '208/77' * Total exercise time was '10:00' * Maximum exercise MET level achieved was '11.80' METS * Maximum treadmill speed was '4.20' miles per hour. * Maximum treadmill elevation was '16.00'% grade. * Exercise was terminated due to 'achieving target heart rate' MMode 2D Measurements and Calculations IVSd 1.0 cm LVIDd 5.1 cm LVIDs 3.4 cm LVPWd 0.96 cm IVS/LVPW 1.1 FS 33.4 % EDV(Teich) 122.0 ml ESV(Teich) 46.6 ml EF(Teich) 61.8 % EDV(cubed) 130.1 ml ESV(cubed) 38.4 ml EF(cubed) 70.5 % LV mass(C)d 182.2 grams LV mass(C)dI 88.4 grams/m\S\2 SV(Teich) 75.4 ml SI(Teich) 36.6 ml/m\S\2 SV(cubed) 91.7 ml SI(cubed) 44.5 ml/m\S\2 LVAd ap4 35.7 cm\S\2 LVLd ap4 9.0 cm EDV(MOD-sp4) 118.3 ml EDV(sp4-el) 120.6 ml LVAs ap4 20.4 cm\S\2 LVLs ap4 6.9 cm ESV(MOD-sp4) 50.9 ml ESV(sp4-el) 51.2 ml EF(MOD-sp4) 57.0 % EF(sp4-el) 57.5 % LVAd ap2 35.3 cm\S\2 LVLd ap2 8.8 cm EDV(MOD-sp2) 119.6 ml EDV(sp2-el) 119.9 ml LVAs ap2 20.1 cm\S\2 LVLs ap2 7.6 cm ESV(MOD-sp2) 46.4 ml ESV(sp2-el) 45.4 ml EF(MOD-sp2) 61.2 % EF(sp2-el) 62.2 % LVLd %diff -1.94 % EDV(MOD-bp) 120.3 ml LVLs %diff 9.4 % ESV(MOD-bp) 50.7 ml EF(MOD-bp) 57.8 % SV(MOD-sp4) 67.4 ml SI(MOD-sp4) 32.7 ml/m\S\2 SV(MOD-sp2) 73.2 ml SI(MOD-sp2) 35.5 ml/m\S\2 SV(MOD-bp) 69.5 ml SI(MOD-bp) 33.7 ml/m\S\2 SV(sp4-el) 69.4 ml SI(sp4-el) 33.6 ml/m\S\2 SV(sp2-el) 74.5 ml SI(sp2-el) 36.1 ml/m\S\2
--- NOTE | 2017-11-28 18:20 | Discharge Summary ---
Discharge Summary Date of Service Nov 28, 2017. Discharge Summary Admission Date: Nov 27, 2017 at 13:37 Discharge Date: Nov 28, 2017 Discharge Disposition: Home Principal Diagnosis: chest pain OTHER ACUTE DIAGNOSES: heart block- first degree with intermittent Mobitz type 1 second degree . Secondary Diagnoses/Problems: Chronic and Resolved Medical Problems: (1) Dyslipidemia Status: Chronic (2) Prediabetes Status: Chronic (3) Prostate CA Permanent Comment: s/p surgery 2010, Lupron Status: Chronic Surgical Problems: (1) Hx of prostatectomy Permanent Comment: 2010 . Procedures: cardiac monitoring echocardiogram treadmill stress echo . Consultations: Cardiology with Dr. Valladares . Pending Studies/Follow-Up: Please arrange for ZIO Patch re: bradycardia, intermittent heart block. . Medication Reconciliation New Medications: Losartan Potassium (Losartan Potassium) 25 Mg Tab 25 MG PO DAILY, #30 TAB 5 Refills Continued Medications: Aspirin (Aspirin Ec) 81 Mg Tab 81 MG PO DAILY Cholecalciferol (Vitamin D) 1,000 Unit Tab 1 TAB PO DAILY Fish Oil ([place]-3) 1 Ea Cap 1 CAP PO DAILY, CAP Oyster Shell (Calcium) 500 Mg Tab 1 TAB PO DAILY Solifenacin (Vesicare) 10 Mg Tab 10 MG PO DAILY, TAB Admission Information HPI (per Admitting provider): Pt is a 67 y/o M with PMH dyslipidemia, prediabetes, prostate CA S/P surgery, presented to ER from PCP office with c/o intermittent CP and found to be bradycardic with 1st degree and 2nd degree AV block on 2 EKGs in office. Pt denies any CP today or currently. Patient reports past month has noticed intermittent left-sided mild chest discomfort that lasts for a few minutes. Reports has noticed it occurs mostly after eating and resolves with drinking water. Sometimes occurs not associated with eating. Denies any chest discomfort with activity or exercise. Denies any SOB, diaphoresis, dizziness, palpitations , syncope. Patient states exercises approx 5 days a week: 30 minutes on treadmill and elliptical. Denies any CP/SOB/dizziness with exercise. Pt reports was on simvastatin 10mg in past, however has been off for past 2 years, as been controlled with diet. Denies fever/chills, diaphoresis, N/V/D/C, LAURA, vision changes, neck pain, orthopnea, cough, sore throat, choking, indigestion, abdominal pain, paresthesias, weakness, extremity edema, rashes, weight changes. Denies any known personal cardiac history. FH: father CABG age ~70, brother CAD with stent at 76 y/o. . Physical Exam (per Admitting): General Appearance: WD/WN, no apparent distress Head: normocephalic, atraumatic Eyes: normal inspection, sclerae normal ENT: hearing grossly normal, pharynx normal, + pertinent finding (mucous membranes moist) Neck: supple, trachea midline Respiratory/Chest: chest non-tender, lungs clear, normal breath sounds, no respiratory distress Cardiovascular: no murmur, normal peripheral pulses, + bradycardia Abdomen/GI: normal bowel sounds, non tender, soft Extremities/Musculoskelatal: normal inspection, no pedal edema, normal range of motion Neurologic/Psych: alert, normal mood/affect, oriented x 3 Skin: warm/dry Hospital Course CHEST PAIN Experiencing intermittent nonexertional chest pain. Serial troponins negative. No acute EKG changes. No wall motion abnormalities on echo. No stress-induced ischemia on treadmill stress echo at adequate workload. Consider GI evaluation if symptoms persist / worsen. HEART BLOCK First degree AV block with intermittent asymptomatic second degree block ( Mobitz type I). TSH normal. Lyme screen negative. Not on any rate-slowing drugs. Outpatient cardiac monitoring with ZIO patch recommended. ELEVATED BLOOD PRESSURES Blood pressures fluctuated; BP in ED as high as 166/92. Moderate concentric LVH noted on echo. Hypertensive response to exercise noted during stress test. Losartan 25 mg daily recommended. DYSLIPIDEMIA LDL-c = 119. Continue dietary management. PREDIABETES History of prediabetes. Hgb A1C = 6.0. FBS 117. Follow. 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 Follow. PROSTATE CA Followed by Dr. Stuart. Receiving Lupron injections. Recent PSA undetectable. HEPATITIS C SCREENING Hep C screen negative. VTE PROPHYLAXIS SQ enoxaparin. Ambulating. DISPOSITION Discharged to home. Family Medicine follow-up with Dr. Meyers. Follow-up with [facility] Cardiology. . Discharge Instructions Discharge Instructions Date of Service Nov 28, 2017. Admission Reason for Admission: chest pain, slow heart rate . Discharge Discharge Diagnosis / Problem: chest pain- no sign of heart attack, mild heart block Discharge Goals Goal(s): Prevent Disease Progression Activity Recommendations Activity Limitations: resume your previous activity . Instructions / Follow-Up Instructions / Follow-Up APPOINTMENTS: UROLOGY 12/04/2017 10:15 AM Rama Stuart MD Urology, [facility] FAMILY MEDICINE 12/04/2017 11:10 AM Nahid Meyers DO Family Practice [facility] CARDIOLOGY Appointment to be arranged in about 4-6 weeks. Cardiology [facility] OTHER INSTRUCTIONS: There was no sign of a heart attack and you did well on your stress test. Blood pressures were elevated at times. Suggest losartan (Cozaar) 25 mg daily- prescription sent to [facility]. Please monitor your blood pressures at home. You can get a blood pressure monitor at [facility], [facility], or elsewhere. If you feel well on losartan, continue it. If you feel weak or lightheaded, stop taking it. You have mild heart block with delayed conduction of electrical impulses in your heart. It is mild and there is not need for a pacemaker at this time. Outpatient manager monitoring recommended (ZIO patch). Dr. Valladares or Dr. Meyers will make arrangements for you. Lightheadedness, extreme weakness, or passing out could be a sign that heart block is getting worse; seek medical attention if that happens. Seek medical attention if you have: * temperature above 101 * chest pain or trouble breathing * lightheadedness, extreme weakness, passing out * abdominal pain, nausea, vomiting * diarrhea, dark stools or bloody stools * any unanswered questions or concerns Call 911 if symptoms are severe. Call if you have any questions or problems. My cell # is [phone]. You can also reach a [facility] hospitalist on duty at [facility] 24 hours a day by calling [phone]. Please take good care of yourself. Gentry Lyle . Current Hospital Diet Patient's current hospital diet: AHA Diet (Heart Healthy) Discharge Diet Recommended Diet: AHA Diet (Heart Healthy) Procedures Procedures Performed: echocardiogram stress test Pending Studies Studies pending at discharge: no Laboratory Results Hemoglobin A1c Test 11/28/17 05:50 Range/Units Estimated Average Glucose 126 mg/dl Hemoglobin A1c 6.0 H 4.5-5.6 % Lipid Panel Test 11/28/17 05:50 Range/Units Triglycerides Level 153 H 0-150 mg/dl Cholesterol Level 201 H 0-200 mg/dl HDL Cholesterol 51 mg/dl Cholesterol/HDL Ratio 3.9 LDL Cholesterol, Calculated 119 mg/dl Medical Emergencies . Who to Call and When: Medical Emergencies: If at any time you feel your situation is an emergency, please call 911 immediately. . Non-Emergent Contact Non-Emergency issues call your: Primary Care Provider, President Practicing Urologist, Hospital Doctor . . "Provider Documentation" section prepared by Gentry Lyle. . .
== END 2017-11-28 12:24 | disposition home or self-care (01) ==
LOC: C.EDB 11:13 → EEVIPCON 13:37 → C.2E 13:37 → ENRESERV 14:02
PROVIDERS: ADMIT Hospitalist; ATTEND Hospitalist
DX: R07.9 Chest pain, unspecified (principal); D64.9 Anemia, unspecified; C61 Malignant neoplasm of prostate; I44.1 Atrioventricular block, second degree; E78.5 Hyperlipidemia, unspecified; R73.03 Prediabetes; Z90.79 Acquired absence of other genital organ(s); Z79.82 Long term (current) use of aspirin